=== PATIENT | female | born 1940 | race Caucasian/White ===

== ENCOUNTER 2020-05-15 09:27 | Day surgery (SDC) | payer OTHER ==
[2020-05-10 16:29] VITALS: BMI 30.6
[2020-05-15] MEDS ORDERED: PROPOFOL 20 ML ONE ×2 (12:35→12:37)
[2020-05-15] MEDS ORDERED: ONDANSETRON 4 MG/2 ML VIAL ONE (12:46)
[2020-05-15] MEDS ORDERED: ceFAZolin SODIUM 1 GM VIAL ONE (12:46)
[2020-05-15] MEDS ORDERED: DEXAMETHASONE SOD PHOSPHATE 4 MG/1 ML VIAL ONE (12:46)
[2020-05-15] MEDS ORDERED: LIDOCAINE HCL/PF 2% SDV 5ML VIAL ONE (12:46)
[2020-05-15] MEDS ORDERED: ACETAMINOPHEN INJECTION 100 ML IVPB ONE (12:53)
[2020-05-15 15:47] VITALS: TEMP 97.9
[2020-05-15 15:58] VITALS: BP 185/76; PULSE 60
== END 2020-05-15 14:30 | disposition home or self-care (01) ==
LOC: FASU 09:27
PROVIDERS: ATTEND Orthopaedic Surgery
PROC: 0JCN0ZZ Extirpation of Matter from Right Lower Leg Subcutaneous Tissue and Fascia, Open Approach (ICD-10-PCS; principal; 2020-05-15 12:30)
DX: M79.81 Nontraumatic hematoma of soft tissue (principal)
CPT/HCPCS: 94760; J0131